=== PATIENT | female | born 1985 | race Caucasian/White ===

== ENCOUNTER 2016-07-19 20:07 | Emergency (ER) | payer BC, MEDICAID, OTHER ==
[2016-07-19] MEDS ORDERED: ALPRAZolam 0.25 MG TAB As Ordered ONE (21:03)
--- NOTE | 2016-07-19 21:59 | EDDOCDS ---
Physician Documentation [facility] Name: Christina Phillip Age: 31 yrs Sex: Female : 1985 Arrival Date: 07/19/2016 Time: 20:07 Bed 19 Private MD: PATRICIA PORRAS Disposition: 07/19/16 21:20 Discharged to Home/Self Care. Impression: Anxiety disorder, unspecified. - Condition is Stable. - Discharge Instructions: Panic Attacks, Generalized Anxiety Disorder. - Prescriptions for Xanax 0.5 mg Oral Tablet - take 1 tablet by ORAL route every 8 hours As needed MDD: 3 tabs; 10 tablet. - Medication Reconciliation, Local Pharmacy Hours form. - Follow up: PATRICIA PORRAS; When: 2 - 3 days; Reason: Recheck today's complaints, Continuance of care. Follow up: Referral list, As provided by PFS; When: Call to arrange an appointment; Reason: Continuance of care. - Problem is an acute exacerbation. - Symptoms have improved. Historical: - Allergies: IODINEIODINE CONTAINING; IV Dye; - Home Meds: 1. Zoloft 100 mg oral tab 2 tabs once daily 2. gabapentin 600 mg Oral tab 1 tab 3 times per day - PMHx: Anxiety; Depression; Panic Attacks; - PSHx: ; - Social history: Smoking status: Patient states former smoker of tobacco. No barriers to communication noted. - Family history: Not pertinent. - : The pt / caregiver states he / she is not on anticoagulants. Home medication list is obtained from the patient, pill bottles. - Exposure Risk Screening:: None identified. WIG STYLIST: 07/19 20:18 LMP 06/18/2016 [facility] Vital Signs: 20:18 BP 123 / 64; Pulse 82; Resp 23; Temp 99.9; Pulse Ox 97% ; Weight 99.79 kg / 220 lbs; [facility] Height 5 ft. 5 in. (165.10 cm); Pain 9/10; 21:24 BP 110 / 57; Pulse 74; Resp 18; Temp 98.4(TE); Pulse Ox 97% on R/A; Pain 8/10; cinda 20:18 Body Mass Index 36.61 (99.79 kg, 165.10 cm) [facility] MDM: 20:54 ALPRAZolam Tablet 1 mg PO once ordered. ke Administered Medications: 21:09 Drug: ALPRAZolam 1 mg [alprazolam 0.25 mg tablet (4 tabs)] Route: PO; [facility] 21:56 Follow up: Response: Confirmed pt not driving.; Anxiety is improved [facility] Signatures: Demetrius Ramos, MAINTENANCE APPRENTICE MAINTENANCE APPRENTICE Vera Yip,MARYANN RN [facility] MTDD
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
--- NOTE | 2016-07-21 23:00 | EDDOCDS ---
Physician Documentation [facility] Name: Christina Phillip Age: 31 yrs Sex: Female : 1985 Arrival Date: 07/19/2016 Time: 20:07 Bed 19 Private MD: PATRICIA PORRAS Disposition: 07/19/16 21:20 Discharged to Home/Self Care. Impression: Anxiety disorder, unspecified. - Condition is Stable. - Discharge Instructions: Panic Attacks, Generalized Anxiety Disorder. - Prescriptions for Xanax 0.5 mg Oral Tablet - take 1 tablet by ORAL route every 8 hours As needed MDD: 3 tabs; 10 tablet. - Medication Reconciliation, Local Pharmacy Hours form. - Follow up: PATRICIA PORRAS; When: 2 - 3 days; Reason: Recheck today's complaints, Continuance of care. Follow up: Referral list, As provided by PFS; When: Call to arrange an appointment; Reason: Continuance of care. - Problem is an acute exacerbation. - Symptoms have improved. Historical: - Allergies: IODINEIODINE CONTAINING; IV Dye; - Home Meds: 1. Zoloft 100 mg oral tab 2 tabs once daily 2. gabapentin 600 mg Oral tab 1 tab 3 times per day - PMHx: Anxiety; Depression; Panic Attacks; - PSHx: ; - Social history: Smoking status: Patient states former smoker of tobacco. No barriers to communication noted. - Family history: Not pertinent. - : The pt / caregiver states he / she is not on anticoagulants. Home medication list is obtained from the patient, pill bottles. - Exposure Risk Screening:: None identified. 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 5 in. (165.10 cm); Pain 9/10; 21:24 BP 110 / 57; Pulse 74; Resp 18; Temp 98.4(TE); Pulse Ox 97% on R/A; Pain 8/10; cinda 20:18 Body Mass Index 36.61 (99.79 kg, 165.10 cm) [facility] MDM: 20:54 ALPRAZolam Tablet 1 mg PO once ordered. ke 23:36 [facility] Payment Agreement was scanned into [employer] and attached to record. [facility] 23:37 Financial registration complete. [facility] 07/20 10:06 T-Sheet-- Draft Copy was scanned into [employer] and attached to record. sol Administered Medications: 07/19 21:09 Drug: ALPRAZolam 1 mg [alprazolam 0.25 mg tablet (4 tabs)] Route: PO; [facility] 21:56 Follow up: Response: Confirmed pt not driving.; Anxiety is improved [facility] Signatures: Bridget Landaverde, Reg Reg Demetrius Ramos, FIRE HAZARD INSPECTOR FIRE HAZARD INSPECTOR Vera YipRN RN [facility] Shaye Augustin [facility] The chart was reviewed and I authenticate all verbal orders and agree with the evaluation and treatment provided.Attachments: 23:36 [facility] Payment Agreement [facility] 07/20 10:06 T-Sheet-- Draft Copy gb Chart Complete MTDD
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
--- NOTE | 2016-07-21 23:00 | EDDOCDS ---
Physician Documentation [facility] Name: Christina hPillip Age: 31 yrs Sex: Female : 1985 Arrival Date: 07/19/2016 Time: 20:07 Bed 19 Private MD: PATRICIA PORRAS Disposition: 07/19/16 21:20 Discharged to Home/Self Care. Impression: Anxiety disorder, unspecified. - Condition is Stable. - Discharge Instructions: Panic Attacks, Generalized Anxiety Disorder. - Prescriptions for Xanax 0.5 mg Oral Tablet - take 1 tablet by ORAL route every 8 hours As needed MDD: 3 tabs; 10 tablet. - Medication Reconciliation, Local Pharmacy Hours form. - Follow up: PTARICIA PORRAS; When: 2 - 3 days; Reason: Recheck today's complaints, Continuance of care. Follow up: Referral list, As provided by PFS; When: Call to arrange an appointment; Reason: Continuance of care. - Problem is an acute exacerbation. - Symptoms have improved. Historical: - Allergies: IODINEIODINE CONTAINING; IV Dye; - Home Meds: 1. Zoloft 100 mg oral tab 2 tabs once daily 2. gabapentin 600 mg Oral tab 1 tab 3 times per day - PMHx: Anxiety; Depression; Panic Attacks; - PSHx: ; - Social history: Smoking status: Patient states former smoker of tobacco. No barriers to communication noted. - Family history: Not pertinent. - : The pt / caregiver states he / she is not on anticoagulants. Home medication list is obtained from the patient, pill bottles. - Exposure Risk Screening:: None identified. 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 5 in. (165.10 cm); Pain 9/10; 21:24 BP 110 / 57; Pulse 74; Resp 18; Temp 98.4(TE); Pulse Ox 97% on R/A; Pain 8/10; cinda 20:18 Body Mass Index 36.61 (99.79 kg, 165.10 cm) [facility] MDM: 20:54 ALPRAZolam Tablet 1 mg PO once ordered. ke 23:36 [facility] Payment Agreement was scanned into [employer] and attached to record. [facility] 23:37 Financial registration complete. [facility] 07/20 10:06 T-Sheet-- Draft Copy was scanned into [employer] and attached to record. sol Administered Medications: 07/19 21:09 Drug: ALPRAZolam 1 mg [alprazolam 0.25 mg tablet (4 tabs)] Route: PO; [facility] 21:56 Follow up: Response: Confirmed pt not driving.; Anxiety is improved [facility] Signatures: Bridget Landaverde, Reg Reg Demetrius Ramos, GEOGRAPHIC INFORMATION SYSTEMS DIRECTOR GEOGRAPHIC INFORMATION SYSTEMS DIRECTOR Vera YipRN RN [facility] Shaye Augustin [facility] The chart was reviewed and I authenticate all verbal orders and agree with the evaluation and treatment provided.Attachments: 23:36 [facility] Payment Agreement [facility] 07/20 10:06 T-Sheet-- Draft Copy gb Chart Complete MTDD
== END 2016-07-19 21:58 | disposition home or self-care (01) ==
LOC: M ED 20:07
DX: F41.0 Panic disorder [episodic paroxysmal anxiety] (principal); F32.9 Major depressive disorder, single episode, unspecified; Z87.891 Personal history of nicotine dependence; Z79.899 Other long term (current) drug therapy; Z88.8 Allergy status to other drugs, medicaments and biological substances; Z91.041 Radiographic dye allergy status

== ENCOUNTER 2016-11-21 17:56 | Emergency (ER) | payer BC, MEDICAID, OTHER ==
[~2016-11-21] VITALS: Ht 165.1 cm; Wt 113.4 kg
[2016-11-21] MEDS ORDERED: OMEP20CA3 (18:10)
[2016-11-21] MEDS ORDERED: GABA600T PO (18:10)
[2016-11-21] MEDS ORDERED: HYDR-4274 PO (18:10)
[2016-11-21] MEDS ORDERED: SERT-138 PO (18:10)
[2016-11-21] MEDS ORDERED: ALBU17IN (18:10)
[2016-11-21] MEDS ORDERED: ALPRAZolam 0.25 MG TAB PO ONE (19:15)
[2016-11-21 19:47] LABS: MEAN CORPUSCULAR HEMOGLOBIN 29.9 pg (27.0-33.0); MEAN CORPUSCULAR HGB CONC 33.7 g/dl (32.0-36.5); MEAN CORPUSCULAR VOLUME 88.9 fl (80.0-96.0); RED CELL DISTRIBUTION WIDTH 13.4 % (11.5-14.5); WHITE BLOOD COUNT 9.6 K/mm3 (4.0-10.0)
[2016-11-21 19:59] LABS: CONTROL LINE HCG INT CTR LINE PRESENT
[2016-11-21 20:08] LABS: METHADONE URINE NEGATIVE (NEGATIVE)
[2016-11-21 20:17] LABS: ALBUMIN 3.5 GM/DL (3.2-5.2); ALBUMIN/GLOBULIN RATIO 1.03 (1.00-1.93); ALKALINE PHOSPHATASE 42 U/L (45-117); ALT/SGPT 32 U/L (12-78); ANION GAP 10 MEQ/L (8-16); AST/SGOT 30 U/L (15-37); BILIRUBIN,DIRECT < 0.1 MG/DL (0.0-0.2); BILIRUBIN,TOTAL 0.3 MG/DL (0.2-1.0); BLOOD UREA NITROGEN 11 MG/DL (7-18); CALCIUM LEVEL 8.4 MG/DL (8.5-10.1); CARBON DIOXIDE LEVEL 26 MEQ/L (21-32); CHLORIDE LEVEL 105 MEQ/L (98-107); CREATININE FOR GFR 0.95 MG/DL (0.55-1.02); GLOMERULAR FILTRATION RATE > 60.0 (>60); GLUCOSE, FASTING 90 MG/DL (70-105); POTASSIUM SERUM 3.5 MEQ/L (3.5-5.1); SODIUM LEVEL 141 MEQ/L (136-145); TOTAL PROTEIN 6.9 GM/DL (6.4-8.2)
[2016-11-21 23:35] VITALS: BP 120/60
== END 2016-11-21 23:37 | disposition home or self-care (01) ==
LOC: M ED 22:26
DX: F41.1 Generalized anxiety disorder (principal)
CPT/HCPCS: 80048; 80076; 80306; 84443; 84703; 85027; 99284; G0480